=== PATIENT | male | born 2000 | race Two or more races ===

== ENCOUNTER 2024-03-26 09:42 | Emergency (ER) | payer BC, MEDICAID, SELFPAY ==
[2024-03-26 09:51] VITALS: BMI 21.9
--- NOTE | 2024-03-26 09:56 | EKG_ITS ---
[facility] Test Date: 2024-03-26 Pat Name: MIGU[address] Department: Room: - Gender: Male Well [facility] Offsider: : 2000 Requested By: Bart Silva Order Number: [id number] Reading MD: Bart Silva Measurements Intervals [place] Rate: 124 P: -6 MN: 137 QRS: 22 QRSD: 83 T: 16 QT: 292 QTc: 420 Interpretive Statements SINUS TACHYCARDIA ABNORMAL RHYTHM ECG No previous ECG available for comparison /store/S0/[id number]/ecg/[id number].pdf
--- NOTE | 2024-03-26 09:56 | XR_ITS ---
Examination: AP chest single view Technique one AP portable semiupright chest single view Exam date and time: March 26, 2024 1007 hours INDICATIONS: Shortness of breath today. FINDINGS: Normal heart size No lobar pneumonia The osseous structures are intact IMPRESSION: No active disease
--- NOTE | 2024-03-26 09:57 | XR_ITS ---
Examination: CT brain head without contrast. 2-D sagittal coronal reconstructions Date and time of exam:March 26, 2024 1024 hours COMPARISON: January 05, 2023 INDICATIONS: Onset seizures today CTDI: vol (mGy):50.2 DLP: (mGycm):1061 Technique: Multiple CT axial sections of the brain have been obtained, 5 mm slice thickness. Contrast has not been administered. 2-D sagittal, coronal reconstructions have been obtained Low dose protocols were performed. One or more of the following dose reduction techniques were used; automated exposure control, adjustment of the mA and/or KV according to patient size, use of iterative reconstruction technique. Findings: No significant ventricular enlargement. Intra-axial or extra-axial hemorrhage density is not seen. No mass effect or midline shift Basal cisterns are not remarkable. Fourth ventricle is midline. Cranial vault intact. Impression: Negative for acute hemorrhage, mass effect or midline shift Consider elective MRI brain follow-up, pre and postcontrast, seizure protocol
--- NOTE | 2024-03-26 10:17 | EDNOTE_ITS ---
ED Seizures RME/HPI General Chief Complaint: Seizure Stated Complaint: SEIZURE Time Seen by Provider: 03/26/24 09:51 Arrival date/time: 03/26/24 09:42 RME / HPI RME / HPI Narrative: This section includes all my notes and documentations, including HPI, PE, and ED course.? Bart Thomas MD HPI: 24 year old male with history of seizures presents to the ED BIBA from home for seizure lasting 3 minutes per family. When they arrived patient was postictal and combative. Was given 4mg IN Versed. Medics state there were empty bottles of alcohol on scene. Mom reports she drinks alcohol only occasionally. No empty bottles aren't all from recently. Prehospital BS 188. No other complaints. ROS: Can't obtain from the patient due to current clinical condition. Initial physical exam: Difficult to assess the patient, he is combative and attempting to get off the gurney, leida serna was called at 09:40. Multiple security guards are holding him down. Physical Exam (after return to baseline): General:? Alert and oriented.? No acute distress. Eyes:? Conjunctivae and lids clear.? PERRL. EOMI. ENT:? No nasal congestion.??Pharynx normal. TM normal bilaterally. Neck:? Supple.? Heart:? RRR.? Lungs:? No respiratory distress.? Good air movement.? No rhonchi, wheezing, rales.?? Abdomen:? Soft and nontender.?? Legs:? No clubbing, cyanosis, edema.? Skin:? Warm and dry.?? Neuro:? Alert and oriented X 3.??Cranial nerves II to XII grossly normal. No peripheral motor deficits. I reviewed all diagnostic test results. My interpretation of the EKG is?sinus rhythm with no acute ST?T changes. My interpretation of the chest x-ray is no acute findings. My review of the head CT report is?no acute findings. Blood tests and urine tests?remarkable for WBC 19.5, GLU 240, LA 20. At this point, diagnoses include?recurrent seizure. Treatment here included?IV fluid and Ativan 2 mg IV and Keppra 1000 mg IV. Significant improvement noted with return to baseline mental status. I discussed the case with our neurologist.? About the presentation and exam and diagnostics and treatments here.? And possible need of further care in the hospital.? Recommended increasing Keppra to 750 mg twice daily and outpatient follow-up. Based on my best medical judgment, made decision no further evaluation or treatment indicated at this time.? Patient understands and agrees to the discharge instructions customized and printed, see below. Discharge Instructions from Dr. Thomas printed for you: 1. After extensive evaluation, there is no life-threatening condition causing your seizure. Such stroke or brain tumor. 2. Your case was discussed with your neurologist (Dr. Lemons). Increase your Keppra to 750 mg 2X daily, as she recommended. 3. See her on 03/28/2024 for recheck, as she recommended. 4. Seek immediate medical care with another seizure or with any concerns. Bart Thomas MD Related Data Previous Rx's ?Medication ?Instructions ?Recorded levetiracetam 500 mg tablet 500 mg PO BID #30 tabs 12/26/22 (Keppra) levetiracetam 500 mg tablet 500 mg PO BID #60 tabs 01/29/23 (Keppra) levetiracetam 750 mg tablet 750 mg PO BID #60 tabs 03/26/24 (Keppra) Allergies Allergy/AdvReac Type Severity Reaction Status Date / Time NKA* Allergy Uncoded 03/26/24 09:50 Review of Systems Review of Systems Systems Reviewed: All systems reviewed, normal except as documented Past Medical History Past Medical History NEUROLOGIC: Positive Seizures CARDIAC: Negative Congestive Heart Failure RESPIRATORY: Positive Asthma; Negative Chronic Obstructive Pulmonary Disease (COPD) GENITOURINARY: Negative Renal Disease ENDOCRINE: Negative Diabetes Mellitus Type 1 or Diabetes Mellitus Type 2 Social History SMOKING STATUS: Unknown if ever smoked ED Exam Narrative Physical exam: As noted in HPI Course Quality Measures none Orders Category Date Time Status EKG (ED ONLY) *Do not use* NOW Care 03/26/24 09:56 Completed Saline [Insert IV] NOW Care 03/26/24 09:56 Active Straight [In and Out Catheter] X1 Care 03/26/24 09:[address] head/brain wo con Stat Exams 03/26/24 09:57 Completed EKG (ED Only) Stat Exams 03/26/24 09:56 Draft XR chest 1V portable Stat Exams 03/26/24 09:56 Completed ABG [Arterial Blood Gas] Stat Lab 03/26/24 10:01 Ordered Acetaminophen Stat Lab 03/26/24 10:50 Completed Alcohol, Blood Medical Stat Lab 03/26/24 10:50 Completed CBC Stat Lab 03/26/24 10:00 Completed CK [Creatine Kinase] Stat Lab 03/26/24 10:50 Completed CMP [Comprehensive Metabolic Panel] Stat Lab 03/26/24 10:50 Completed Drug Screen,Urine Stat Lab 03/26/24 10:00 Completed Lactate (Lactic Acid) Stat Lab 03/26/24 10:00 Completed Lactic Acid, 3 HR Stat Lab 03/26/24 13:13 Ordered Magnesium Stat Lab 03/26/24 10:50 Completed Salicylate Stat Lab 03/26/24 10:50 Completed TSH [Thyroid Stimulating Hormone] Stat Lab 03/26/24 10:50 Completed Troponin I Stat Lab 03/26/24 10:50 Completed UA, C/S IF [Urinalysis, C/S if Indicated] Stat Lab 03/26/24 10:00 Completed LORazepam [Ativan Inj] Med 03/26/24 10:26 Discontinued 2 mg IVP X1 ONE Sodium Chloride 0.9% 1000 ml [Ns] 1,000 ml Med 03/26/24 10:27 Discontinued IV 999 mls/hr Sodium Chloride 0.9% 1000 ml [Ns] 1,000 ml Med 03/26/24 11:46 Discontinued IV 999 mls/hr levETIRAcetam INJ [Keppra Inj] Med 03/26/24 12:01 Discontinued 1,000 mg IVP X1 ONE Vital Signs Vital signs: Vital Signs Temperature 98 F 03/26/24 10:22 Pulse Rate 132 H 03/26/24 10:22 Respiratory Rate 36 H 03/26/24 10:22 Blood Pressure 145/68 H 03/26/24 10:22 Pulse Oximetry (%) 94 L 03/26/24 10:22 Oxygen Delivery Method Room Air 03/26/24 10:22 Pulse ox is 94% on room air which is adequate. Seizure MDM Narrative MDM Narrative:: Sharon Hilton am scribing for and in the presence of Dr. Thomas. Patient data External records reviewed:: [facility] previous records (I reviewed ED visit on 01/29/2023 ) and EMS form Clinical information provided by:: patient, EMS and family Social determinants that could affect healthcare access:: alcohol use Patient has the following chronic illnesses:: Seizures How is presenting disease/condition affected by chronic disease/condition?: exacerbated by Evaluation data The following diagnostics were reviewed and interpreted by me:: lab results, radiology exam(s) and EKG tracing(s) (My interpretation of the EKG: Sinus tachycardia (124 bpm) with no ST-T changes. Bart Thomas MD) Lab and/or radiology exams considered but not ordered:: None Interpretation Summary: Recurrent seizure Medications / Prescriptions Medications or Prescriptions considered but not ordered:: None Medication administrations:: Medication Administration History Discontinued Medications Sodium Chloride (Ns) 1,000 mls @ 999 mls/hr IV .Q1H1M ONE Stop: 03/26/24 11:27 Last Infusion: 03/26/24 12:15 Dose: Infused Documented By: Admin: 03/26/24 11:10 Dose: 999 mls/hr Documented By: RON Sodium Chloride (Ns) 1,000 mls @ 999 mls/hr IV .Q1H1M ONE Stop: 03/26/24 12:46 Last Admin: 03/26/24 12:59 Dose: 999 mls/hr Documented By: RON Levetiracetam (Levetiracetam Inj 100 Mg/Ml Vial 5ml) 1,000 mg IVP X1 ONE Stop: 03/26/24 12:02 Last Admin: 03/26/24 12:59 Dose: 1,000 mg Documented By: RON Lorazepam (Lorazepam 2 Mg/Ml Vial) 2 mg IVP X1 ONE Stop: 03/26/24 10:27 Last Admin: 03/26/24 11:10 Dose: 2 mg Documented By: RNO IV fluid and Ativan and Keppra Consultations Consultation(s) initiated? (list below): Yes Consultation #1 (Physician, Specialty, Details): I spoke with neurologist Dr. Bonilla. Discussed patients PMHx, HPI, ED course, exam findings, labs, and radiology results. Time: 12:20 Diagnosis Seizure Differential Diagnosis: intractable seizure disorder, focal seizure, generalized seizure, epileptic seizure and status epilepticus Most likely diagnosis given after review of the tests above:: Recurrent seizure Admission Indicated Admission indicated?: not indicated Explain why admission is indicated or not indicated:: Neurology recommended outpatient care Admission Request Was there a request for admission?: No Disposition Plan Disposition Plan: Discharge Discharge Attestation Discharge Attestation: The patient and all family members were given an opportunity to ask questions and understood the discharge instructions. Discharge instructions specifically effects, indications for sooner follow up or return to the emergency department, and the expected course of current diagnosis. Patient condition: Stable Discharge Plan Plan Patient Disposition: HOME (Self Care) Prescriptions/Referrals Prescriptions/Med Rec: New levetiracetam [Keppra] 750 mg tablet 750 mg PO BID Qty: 60 0RF No Action levetiracetam [Keppra] 500 mg tablet 500 mg PO BID Qty: 30 1RF levetiracetam [Keppra] 500 mg tablet 500 mg PO BID Qty: 60 0RF Referrals: Ariadne Singleton PA-C [Primary Care Provider] - In 1 week Problem List Clinical Impression: Recurrent seizures Patient/Caregiver Discharge Instructions Discharge Activity: activity as tolerated Education Materials: ED Seizure, Recurrent (Adult) Additional Instructions: Discharge Instructions from Dr. Thomas printed for you: 1. After extensive evaluation, there is no life-threatening condition causing your seizure. Such stroke or brain tumor. 2. Your case was discussed with your neurologist (Dr. Lemons). Increase your Keppra to 750 mg 2X daily, as she recommended. 3. See her on 03/28/2024 for recheck, as she recommended. 4. Seek immediate medical care with another seizure or with any concerns. Print Language: Bengali Stand Alone Forms: [employer] Award Info., Patient Portal Info Letter
[2024-03-26 10:18] LABS: Basophils # (Auto) 0.1 Thou/mm3 (0.0-0.2); Basophils % (Auto) 1 % (0-2.5); Eosinophils # (Auto) 0.3 Thou/mm3 (0.0-0.5); Eosinophils % (Auto) 2 % (0-10); Hematocrit 48.7 % (41.0-53.0); Hemoglobin 16.9 g/dL (13.5-16.0); Immature Granulocytes % (Auto) 2 % (0-0); Lymphocytes # (Auto) 4.5 Thou/mm3 (1.0-4.8); Lymphocytes % (Auto) 23 % (10-50); Mean Corpuscular HGB Conc 34.7 g/dl (31.0-37.0); Mean Corpuscular Hemoglobin 31.5 pg (25.0-35.0); Mean Corpuscular Volume 91 fL (80-100); Monocytes # (Auto) 1.7 Thou/mm3 (0.0-0.8); Monocytes % (Auto) 9 % (0-12); Neutrophils # (Auto) 12.6 Thou/mm3 (1.8-7.7); Neutrophils % (Auto) 64 % (37-80); Nucleated Red Blood Cell % 0 /100 WBC (0); Platelet Count 280 Thou/mm3 (140-440); RDW Standard Deviation 40.6 fL (35.1-43.9); Red Blood Count 5.36 Miln/mm3 (4.50-5.90); White Blood Count 19.5 Thou/mm3 (3.8-10.6)
[2024-03-26 10:22] VITALS: BP 145/68; PULSE 132; RESP 36; TEMP 36.6; O2SAT 94
--- NOTE | 2024-03-26 10:31 | PC.NURSE ---
BIBA FROM HOME DUE TO SEIZURE LASTING 3 MINUTES PER FAMILY. PATIENT POST-ICTAL UPON EMS ARRIVAL AND BECAME COMBATIVE WITH EMPTY ALCOHOL BOTTLES OBSERVED IN ROOM. HX OF EPILEPSY AND NKA. PATIENT PLACED IN RESTRAINTS.
[2024-03-26 10:45] LABS: Amphetamine/Methamp Scrn,U Negative (Negative); Barbiturate Screen,Urine Negative (Negative); Benzodiazepines Screen,Urine Positive (Negative); Benzoylecgonine Screen, Ur Negative (Negative); Fentanyl Screen,Urine Negative (Negative); Opiate Screen,Urine Negative (Negative); THC Screen,Urine Positive (Negative)
[2024-03-26 11:06] LABS: Collection Type, Urine Clean Catch; Squamous Epithelial Cell,Urine 0 /hpf (0-5)
[2024-03-26 11:08] LABS: Bilirubin,Urine Negative (Negative); Blood,Urine 1+ (Negative); Clarity,Urine Clear (Clear/Hazy); Color,Urine Lt-Yellow (Lt Yel-Yel); Culture Indicated,Urine Not Indicated; Glucose, Urine Trace (Negative); Hyaline Casts,Urine < 1 /hpf (0-1); Ketones,Urine Trace (Negative); Leukocyte Esterase,Urine Negative (Negative); Nitrite,Urine Negative (Negative); Protein,Urine 1+ (Neg - Trace); RBC,Urine 2 /hpf (0-3); Specific Gravity,Urine 1.017 (1.001-1.035); Urobilinogen,Urine Negative mg/dL (0.0-1.0); WBC,Urine < 1 /hpf (0-5)
[2024-03-26] MEDS: SODIUM CHLORIDE 0.9% 1000 ML 1,000 ML 999 ML IV ×2 (11:10→12:59)
[2024-03-26] MEDS: LORazepam 2 MG/ML VIAL IVP (11:10)
[2024-03-26 11:29] VITALS: BP 106/90; PULSE 89; RESP 20; TEMP 36.7; O2SAT 99
[2024-03-26 11:46] LABS: Acetaminophen < 2.0 mcg/mL (10.0-20.0); Alanine Aminotransferase 31 U/L (10-49); Albumin, Serum 5.8 gm/dL (3.5-5.0); Albumin/Globulin Ratio 2.1 (1.2-2.2); Alcohol, Blood Medical < 3.0 mg/dL (0-10.0); Alkaline Phosphatase 94 U/L (46-116); Anion Gap 15 (7-16); Aspartate Amino Transferase 40 U/L (0-34); BUN/Creatinine Ratio 12 Ratio (12-20); Bilirubin,Total 0.6 mg/dL (0.3-1.2); Blood Urea Nitrogen 13 mg/dL (9-23); Calcium 10.5 mg/dL (8.3-10.6); Calcium (Corrected) 10.5 mg/dL (8.5-10.1); Carbon Dioxide 17.8 mMol/L (20.0-31.0); Chloride 102 mMol/L (98-107); Creatine Kinase 130 U/L (34-171); Creatinine (Component) 1.1 mg/dL (0.6-1.3); Estimated Creatinine Clearance 81.1 mL/min (>60); Globulin 2.8 gm/dL (2.3-3.5); Glucose 240 mg/dL (74-106); Magnesium 3.5 mg/dL (1.6-2.6); Osmolality,Calculated 278 (275-295); Potassium 4.4 mMol/L (3.4-5.1); Salicylate < 3.0 mg/dL; Sodium 135 mMol/L (136-145); Thyroid Stimulating Hormone 1.48 uIU/mL (0.55-4.78); Total Protein 8.6 gm/dL (5.7-8.2); Troponin I < 0.020 ng/mL (0.0-0.045); eGFR > 60 See Note
[2024-03-26] MEDS: levETIRAcetam INJ 100 MG/ML VIAL 5ML 1000 MG IVP (12:59)
[2024-03-26 13:05] VITALS: BP 129/82; PULSE 91; RESP 20; O2SAT 98
[2024-03-26 13:13] LABS: Reflex Lactate? Y
[2024-03-26 14:21] VITALS: BP 137/87; PULSE 99; RESP 19; TEMP 36.9; O2SAT 99
== END 2024-03-26 14:55 | disposition home or self-care (01) ==
PROVIDERS: Emergency Provider Emergency Medicine; PCP Physician Assistant
DX: R56.9 Unspecified convulsions (principal); R06.02 Shortness of breath; R00.0 Tachycardia, unspecified
CPT/HCPCS: 51701 ×2; 36415; 36600; 70450; 71045; 80053; 80307; 80320; 80329; 81001; 82550; 82803; 83605; 83735; 84443; 84484; 85025; 93005; 96361; 96374; 96375; 99284; J1953; J2060; J7030; G0480

== ENCOUNTER 2024-12-18 17:32 | Emergency (ER) | payer BC, MEDICAID, SELFPAY ==
[2024-12-18 17:35] VITALS: BP 123/79; PULSE 130; RESP 19; TEMP 36.9; O2SAT 96
--- NOTE | 2024-12-18 17:46 | PD.EDSEIZ ---
ED Seizures RME/HPI General Chief Complaint: Seizure Stated Complaint: SEIZURE Time Seen by Provider: 12/18/24 17:43 Arrival date/time: 12/18/24 17:32 RME / HPI RME / HPI Narrative: 24-year-old male patient with significant history of seizure disorder, stopped taking seizure medication Keppra 750 mg twice daily for the last 6 months, came in for evaluation regarding witnessed tonic-clonic seizure lasting for 1 minute. Patient was witnessed by coworker while working in [employer], patient was noted to be sitting next to the fridge shaking for 1 minute. When the EMS arrived patient was noted to be having postictal confusion, initially GCS of 12, on the way to the emergency room patient regained consciousness currently is GCS of 15. Patient complaining of headache severity mild. Denies any cough denies any other complaints similar to her prior to ER visit. Related Data Previous Rx's ?Medication ?Instructions ?Recorded levetiracetam 500 mg tablet 500 mg PO BID #30 tabs 12/26/22 (Keppra) levetiracetam 500 mg tablet 500 mg PO BID #60 tabs 01/29/23 (Keppra) levetiracetam 750 mg tablet 750 mg PO BID #60 tabs 03/26/24 (Keppra) Allergies Allergy/AdvReac Type Severity Reaction Status Date / Time NKA* Allergy Uncoded 03/26/24 09:50 Review of Systems Review of Systems Narrative Review of Systems: Review of system reviewed and within normal limits except mentioned in HPI ED Exam Narrative Physical exam: VITAL SIGNS: Reviewed. GENERAL APPEARANCE: Alert and interactive, follows commands, no acute distress, HEAD AND FACE: Non-traumatic. ENT: PERRL, pink conjunctivitis, eyelid no trauma, Mucous membrane moist. NECK: Supple, nontender, no nuchal rigidity. CHEST: No tenderness, no crepitus, no paradoxical movement, no retractions. LUNGS: Clear, well ventilated, symmetric, no rales, no wheezing, no ronchi, no stridor, good breath sounds bilaterally. HEART: Regular rate, regular rhythm, no murmur, no gallops. ABDOMEN: Soft, positive bowel sounds, nondistended, no guarding, nontender, no rebound, no masses, RECTAL: Deferred. GENITAL: Deferred. NEUROLOGICAL: Gross motor function intact sensory function intact, Appropriate for age. MUSCULOSKELETAL: low back nontender, full range of motion. EXTREMITIES: Nontender, full range of motion. SKIN: Color pink, dry, no rash, no lacerations, no abrasions, no contusions. LYMPHATICS: Deferred. Course Quality Measures none Orders Category Date Time Status CBC [CBC] Stat Lab 12/18/24 17:44 Ordered CMP [Comprehensive Metabolic Panel] Stat Lab 12/18/24 17:44 Ordered Drug Screen,Urine Stat Lab 12/18/24 17:44 Ordered UA, C/S IF [Urinalysis, C/S if Indicated] Stat Lab 12/18/24 17:44 Ordered Acetaminophen Tab [Tylenol ES Tab] Med 12/18/24 17:44 Discontinued 1,000 mg PO X1 ONE Ringers Lactated 1000 ml [Lactated Ringers] 1,000 ml Med 12/18/24 17:44 Active IV 999 mls/hr levETIRAcetam INJ [Keppra Inj] Med 12/18/24 17:44 Discontinued 1,000 mg IVP X1 ONE Vital Signs Vital signs: Vital Signs Temperature 98.4 F 12/18/24 17:35 Pulse Rate 130 H 12/18/24 17:35 Respiratory Rate 19 12/18/24 17:35 Blood Pressure 123/79 12/18/24 17:35 Pulse Oximetry (%) 96 12/18/24 17:35 Oxygen Delivery Method Room Air 12/18/24 17:35 Seizure MDM Narrative MDM Narrative:: 24-year-old male patient with significant history of seizure disorder, stopped taking seizure medication Keppra 750 mg twice daily for the last 6 months, came in for evaluation regarding witnessed tonic-clonic seizure lasting for 1 minute. Patient was witnessed by coworker while working in [employer], patient was noted to be sitting next to the fridge shaking for 1 minute. When the EMS arrived patient was noted to be having postictal confusion, initially GCS of 12, on the way to the emergency room patient regained consciousness currently is GCS of 15. Patient complaining of headache severity mild. Denies any cough denies any other complaints similar to her prior to ER visit. Patient was given IV fluids, and Keppra 1 g IV. Was also given Tylenol. Patient signed AGAINST MEDICAL ADVICE. Despite convincing him to stay for further management. He had an appointment with neurologist this coming Gir[place]. Patient data External records reviewed:: None Clinical information provided by:: patient and family Social determinants that could affect healthcare access:: none Patient has the following chronic illnesses:: Seizure disorder How is presenting disease/condition affected by chronic disease/condition?: exacerbated by Evaluation data The following diagnostics were reviewed and interpreted by me:: lab results Lab and/or radiology exams considered but not ordered:: None Interpretation Summary: Pt has normal mental status and adequate capacity to make medical decisions. Oriented x 4. The patient refuses evaluation and treatment and wants to be discharged. The risks have been explained to the patient, including progression of possible worsening of current disease, worsening illness, chronic pain, permanent disability and . The benefits of evaluation and treatment have also been explained, including the availability and proximity of nurses, physicians, monitoring, diagnostic testing, and treatments. The patient was able to understand and state the risks and benefits of AMA.Patient had the opportunity to ask questions about their medical condition. He left hospital against medical advice. Medications / Prescriptions Medications or Prescriptions considered but not ordered:: None Medication administrations:: Medication Administration History Lactated Ringer's (Lactated Ringers) 1,000 mls @ 999 mls/hr IV .Q1H1M ONE Stop: 12/18/24 18:44 Last Infusion: 12/18/24 18:11 Dose: 0 mls/hr Documented By: Admin: 12/18/24 17:56 Dose: 999 mls/hr Documented By: WALDO Discontinued Medications Acetaminophen (Acetaminophen 500 Mg Tablet) 1,000 mg PO X1 ONE Stop: 12/18/24 17:45 Last Admin: 12/18/24 17:58 Dose: 1,000 mg Documented By: WALDO Levetiracetam (Levetiracetam Inj 100 Mg/Ml Vial 5ml) 1,000 mg IVP X1 ONE Stop: 12/18/24 17:45 Last Admin: 12/18/24 17:53 Dose: 1,000 mg Documented By: WALDO Tylenol, Keppra, IV fluids Consultations Consultation(s) initiated? (list below): No Diagnosis Seizure Differential Diagnosis: intractable seizure disorder, focal seizure and generalized seizure Most likely diagnosis given after review of the tests above:: Breakthrough seizure Admission Indicated Admission indicated?: not indicated Explain why admission is indicated or not indicated:: AMA Admission Request Was there a request for admission?: No Disposition Plan Disposition Plan: other (specify) Discharge Plan Plan Patient Disposition: Left Against Medical Advice Prescriptions/Referrals Prescriptions/Med Rec: No Action levetiracetam [Keppra] 500 mg tablet 500 mg PO BID Qty: 30 1RF levetiracetam [Keppra] 500 mg tablet 500 mg PO BID Qty: 60 0RF levetiracetam [Keppra] 750 mg tablet 750 mg PO BID Qty: 60 0RF Problem List Clinical Impression: Breakthrough seizure Patient/Caregiver Discharge Instructions Print Language: Citizen Of [place]
[2024-12-18 17:51] VITALS: BMI 26.7
[2024-12-18] MEDS: levETIRAcetam INJ 100 MG/ML VIAL 5ML 1000 MG IVP (17:53)
[2024-12-18] MEDS: RINGERS LACTATED 1000 ML 1,000 ML 999 ML IV (17:56)
[2024-12-18] MEDS: ACETAMINOPHEN 500 MG TABLET 1000 MG PO (17:58)
[2024-12-18 18:06] VITALS: O2SAT 97
== END 2024-12-18 18:12 | disposition left against medical advice (07) ==
LOC: SERX 18:14
PROVIDERS: Emergency Provider Family Medicine
DX: G40.909 Epilepsy, unspecified, not intractable, without status epilepticus (principal); T42.6X6A Underdosing of other antiepileptic and sedative-hypnotic drugs, initial encounter; Z91.148 Patient's other noncompliance with medication regimen for other reason; Z53.29 Procedure and treatment not carried out because of patient's decision for other reasons
CPT/HCPCS: 80053; 80307; 81001; 85025; 96374; 99283; J1953; J7120; A9270